=== PATIENT | female | born 1940 | race Caucasian/White ===

== ENCOUNTER 2019-11-21 14:01 | Emergency (ER) | payer MEDICAID, MEDICARE, OTHER ==
[~2019-11-21] VITALS: Ht 160 cm; Wt 70.4 kg
[2019-11-21 14:13] VITALS: BP 155/71
--- NOTE | 2019-11-21 14:55 | PHYS DOC ---
Past Medical History Past Medical History: Anxiety, Diabetes-Type II, High Cholesterol, Hypertension Past Surgical History: Cholecystectomy, Hysterectomy, Tonsillectomy Smoking Status: Never Smoker Alcohol Use: None Adult General Chief Complaint Chief Complaint: KNEE INJURY HPI HPI Patient is a 78 year old female who presents with lunch he went to stand up and began having a sharp shooting pain when she stood up from the chair right behind her knee and now is radiating up the back of her left leg. She states when she just sitting the pain is only at a 4 out of 10 and is just aching. She states understanding 8 out of 10. Patient denies shortness of air, chest pain, numbness or tingling, coolness of the extremity, swelling of the extremity injury, injury, headache, dizziness, visual changes, no focal weakness. Review of Systems Review of Systems Musculoskeletal: Back of left leg pain. Denies back pain or joint pain [] All other systems were reviewed and found to be within normal limits, except as documented in this note. Allergies Allergies Allergies Coded Allergies Type Severity Reaction Last Updated Verified No Known Drug Allergies 11/21/19 No Physical Exam Physical Exam Constitutional: Well developed, well nourished, no acute distress, non-toxic appearance. [] HENT: Normocephalic, atraumatic, bilateral external ears normal, oropharynx moist, no oral exudates, nose normal. [] Eyes: PERRLA, EOMI, conjunctiva normal, no discharge. [] Neck: Normal range of motion, no tenderness, supple, no stridor. [] Cardiovascular:Heart rate regular rhythm, no murmur [] Lungs & Thorax: Bilateral breath sounds clear to auscultation [] Abdomen: Bowel sounds normal, soft, no tenderness, no masses, no pulsatile masses. [] Skin: Warm, dry, no erythema, no rash. [] Back: No tenderness, no CVA tenderness. [] Extremities: No tenderness, no cyanosis, no clubbing, ROM intact, no edema. [] Neurologic: Alert and oriented X 3, normal motor function, normal sensory fun ction, no focal deficits noted. [] Psychologic: Affect normal, judgement normal, mood normal. Normal Physical exam[] Current Patient Data Vital Signs Vital Signs Date Time Temp Pulse Resp B/P (MAP) Pulse Ox O2 Delivery O2 Flow Rate FiO2 11/21/19 14:13 98.0 86 19 155/71 (99) 97 Room Air 98.0 EKG EKG [] Radiology/Procedures Radiology/Procedures [] Impressions: [facility] [address] [place] [address] IMAGING REPORT Signed PATIENT: MEHREEN MURGUIA DACCOUNT: [id number] : 1940 LOCATION: ER AGE: 78 SEX: F EXAM STATUS: REG ER ORD. PHYSICIAN: JOI LEPE APRN REASON: pain behind knee. Check for blood clot and bakers cyst PROCEDURE: VENOUS LOWER EXTREMITY LEFT Left Lower Extremity Venous Doppler: Reason for examination: Left lower extremity pain. The left lower extremity venous system was evaluated from the common femoral and greater saphenous veins distally to the calf veins with grayscale imaging, color-flow imaging and spectral analysis. Greater saphenous vein was removed 15 years ago for varicose veins. There is normal blood flow without deep venous thrombosis. There is normal response of the venous systems to compression and augmentation. 3.2 x 1.5 x 1.7 cm fluid collection in the medial popliteal fossa. Impression: No deep venous thrombosis in the left lower extremity venous system. 3.2 cm fluid collection in the medial popliteal fossa. Electronically signed by: Sheree Salazar MD (11/21/2019 4:12 PM) [id number] DICTATED and SIGNED BY: SHEREE SALAZAR MD DATE: 11/21/19 161 Course & Med Decision Making Course & Med Decision Making Pertinent Labs and Imaging studies reviewed. (See chart for details) Bilateral lower legs 2+ edema. Skin is pink warm and dry. Popliteal pulse present. No tenderness to the back of the patient's leg, back of knee and, calf. No redness or lumps felt. Patient has full range of motion and strength of the leg. Patient states is very painful to walk on the leg. Patient has a history of having the veins stripped from that leg 50 years ago. Alert and oriented. Speaks in full clear sentences. Ambulatory with a steady gait but she does limp. No swelling of the joint has full range of motion of the joint in the left leg. US shows: No deep venous thrombosis in the left lower extremity venous system. 3.2 cm fluid collection in the medial popliteal fossa. Patient is given a medrol dose pack, ice and a america bandage. I will refer her to Orthopedics. Zana Disclaimer Zana Disclaimer This electronic medical record was generated, in whole or in part, using a voice recognition dictation system. Departure Departure Impression: Primary Impression: Alejandre's cyst of knee Disposition: HOME, SELF-CARE Condition: STABLE Referrals: ROSEMARIE CARCAMO MD (PCP) HELLEN PERKINS MD Patient Instructions: Alejandre's Cyst Additional Instructions: Follow up with orthopedic. Use america bandage, ice and medication as prescribed. Scripts Methylprednisolone (MEDROL) 4 Mg Tab.ds.pk 1 PKG PO UD, #1 PKG Prov: JOI LEPE APRN 11/21/19 Hydrocodone/Apap 5-325 (NORCO 5-325 TABLET) 1 Each Tablet 1 TAB PO PRN Q6HRS PRN for PAIN, #10 TAB 0 Refills Prov: JOI LEPE APRN 11/21/19 Problem Qualifiers Primary Impression: Alejandre's cyst of knee Laterality: left Qualified Codes: M71.22 - Synovial cyst of popliteal space [Alejandre], left knee JOI LEPE APRN Nov 21, 2019 14:55
--- NOTE | 2019-11-21 16:15 | RAD ---
Left Lower Extremity Venous Doppler: Reason for examination: Left lower extremity pain. The left lower extremity venous system was evaluated from the common femoral and greater saphenous veins distally to the calf veins with grayscale imaging, color-flow imaging and spectral analysis. Greater saphenous vein was removed 15 years ago for varicose veins. There is normal blood flow without deep venous thrombosis. There is normal response of the venous systems to compression and augmentation. 3.2 x 1.5 x 1.7 cm fluid collection in the medial popliteal fossa. Impression: No deep venous thrombosis in the left lower extremity venous system. 3.2 cm fluid collection in the medial popliteal fossa. Electronically signed by: Sheree Holland MD (11/21/2019 4:12 PM) [id number]
[2019-11-21] MEDS ORDERED: HYDR-3164 PO (16:28)
[2019-11-21] MEDS ORDERED: METH4TAB2 PO (16:28)
== END 2019-11-21 16:45 | disposition home or self-care (01) ==
LOC: ER 14:01
DX: M71.22 Synovial cyst of popliteal space [Baker], left knee (principal); E78.00 Pure hypercholesterolemia, unspecified; E11.9 Type 2 diabetes mellitus without complications; I10 Essential (primary) hypertension; Z90.49 Acquired absence of other specified parts of digestive tract; Z90.710 Acquired absence of both cervix and uterus
CPT/HCPCS: 93971; 99284